=== PATIENT | female | born 1940 | race Native Hawaiian/Other Pacific Islander ===

== ENCOUNTER 2017-05-13 05:18 | Observation (INO) | payer MEDICARE, MEDICAID ==
--- NOTE | 2017-05-13 05:35 | C.PDOC ---
History Of Present Illness pt woke up with fever and chills and not feeling well. No cough. speaking in complete sentences.no dysuria Time Seen by Provider: 05/13/17 05:35 Chief Complaint (Nursing): Fever Past Medical History Reviewed: Historical Data, Nursing Documentation, Vital Signs Vital Signs: Last Vital Signs Temp 100.9 F H 05/13/17 06:15 Pulse 99 H 05/13/17 05:27 Resp 20 05/13/17 05:27 BP 175/72 H 05/13/17 05:27 Pulse Ox 95 05/13/17 06:29 - Medical History PMH: HTN Family History: States: No Known Family Hx - Social History Hx Tobacco Use: No Hx Alcohol Use: No Hx Substance Use: No - Immunization History Hx Tetanus Toxoid Vaccination: No Hx Influenza Vaccination: No Hx Pneumococcal Vaccination: No Review Of Systems Constitutional: Positive for: Fever, Chills. Negative for: Sweats Eyes: Negative for: Redness ENT: Negative for: Throat Pain Cardiovascular: Negative for: Chest Pain, Palpitations Respiratory: Negative for: Shortness of Breath Gastrointestinal: Negative for: Nausea, Vomiting, Abdominal Pain Genitourinary: Negative for: Dysuria Musculoskeletal: Negative for: Back Pain Skin: Negative for: Rash, Lesions, Jaundice Neurological: Negative for: Weakness Psych: Negative for: Anxiety Physical Exam - Physical Exam Appears: Non-toxic Skin: Warm, Dry Head: Normacephalic Eye(s): bilateral: Normal Inspection Oral Mucosa: Moist Neck: Trachea Midline, Supple Chest: Symmetrical Cardiovascular: Rhythm Regular Respiratory: No Rales, No Rhonchi, No Wheezing Gastrointestinal/Abdominal: Soft, No Tenderness, No Distention Back: No CVA Tenderness Extremity: No Tenderness Extremity: Bilateral: Atraumatic Neurological/Psych: Oriented x3, Normal Speech, Normal Cognition Gait: Steady ED Course And Treatment - Laboratory Results Result Diagrams: 05/13/17 05:58 05/13/17 05:58 ECG: Interpreted By Me, Viewed By Me O2 Sat by Pulse Oximetry: 95 Pulse Ox Interpretation: Normal - Radiology CXR: Interpreted by Me, Viewed By Me CXR Interpretation: Yes: Other (? small rll infiltrate). No: COPD, Fracture, Pnemothorax Disposition Counseled Patient/Family Regarding: Studies Performed, Diagnosis - Disposition Disposition Time: 05:35 Condition: FAIR - Clinical Impression Clinical Impression: Fever Physician Patient Turnover Patient Signed Over To: Kanchan Alvares Handoff Comments: pending labs and disposition
[2017-05-13 06:01] LABS: BASO % 0.3 % (0.0-2.0); EOS # 0.2 K/uL (0.0-0.7); EOS % 1.5 % (0.0-4.0); HEMOGLOBIN 13.8 g/dL (11.0-16.0); LYMPH # 1.6 K/uL (1.0-4.3); LYMPH % 11.3 % (20.0-40.0); MEAN CELL VOLUME 93.1 fL (81.0-99.0); MEAN CORPUSCULAR HEMOGLOBIN 31.3 pg (27.0-31.0); MEAN CORPUSCULAR HGB CONC 33.7 g/dL (33.0-37.0); MEAN PLATELET VOLUME 6.6 fL (7.2-11.7); MONO # 0.3 K/uL (0.0-0.8); MONO % 2.2 % (0.0-10.0); NEUT # 11.6 K/uL (1.8-7.0); NEUT % 84.7 % (50.0-75.0); RBC 4.4 Mil/uL (3.80-5.20); RED CELL DISTRIBUTION WIDTH 12.8 % (11.5-14.5); WHITE BLOOD COUNT 13.7 K/uL (4.8-10.8)
[2017-05-13 06:06] LABS: VENOUS BLOOD GAS BASE EXCESS -0.3 mmol/L (0.0-2.0); VENOUS BLOOD GAS PCO2 32 mmHg (40-60); VENOUS BLOOD GAS PO2 66 mm/Hg (30-55); VENOUS BLOOD PH 7.46 (7.32-7.43)
[2017-05-13] MEDS ORDERED: Sodium Chloride 0.9% 1,000 ML IV ONE (06:07)
[2017-05-13] MEDS ORDERED: Sodium Chloride 0.9% 1,000 ML ONE (06:14)
[2017-05-13 06:29] LABS: PROTHROMBIN TIME 11.2 SECONDS (9.7-12.2)
[2017-05-13 06:31] LABS: ALT/SGPT 26 U/L (9-52); AST/SGOT 29 U/L (14-36); BLOOD UREA NITROGEN 15 mg/dL (7-17); CALCIUM 8.2 mg/dl (8.6-10.4); GFR AFRICAN-AMERICAN > 60; GFR NON-AFRICAN AMERICAN > 60
[2017-05-13] MEDS ORDERED: Piperacillin/Tazobact 3.375 gm 100 ML IVPB STA (06:36)
[2017-05-13 07:56] LABS: SQUAMOUS EPITHIAL 1 /hpf (0-5); URINE BILIRUBIN NEGATIVE (NEGATIVE); URINE BLOOD NEGATIVE (NEGATIVE); URINE CLARITY Clear (Clear); URINE COLOR Colorless (YELLOW); URINE GLUCOSE (UA) NORMAL (Normal); URINE LEUKOCYTE ESTERASE NEG Leu/uL (Negative); URINE NITRATE NEGATIVE (NEGATIVE); URINE PROTEIN NEGATIVE (NEGATIVE); URINE UROBILINOGEN NORMAL mg/dL (0.2-1.0)
[2017-05-13] MEDS ORDERED: Moxifloxacin IV 400mg/250ml NS 400 MG/250 ML BAG IV ONE (08:12)
--- NOTE | 2017-05-13 08:32 | RAD ---
PROCEDURE: CHEST RADIOGRAPH, 1 VIEW HISTORY: Shortness of breath COMPARISON: 10/04/2016 FINDINGS: LUNGS: Moderate venous congestion with patchy bibasilar airspace opacities ; right greater than left. PLEURA: No pneumothorax or pleural fluid seen. CARDIOVASCULAR: Cardiomegaly. OSSEOUS STRUCTURES: Degenerative changes in the spine and shoulders. VISUALIZED UPPER ABDOMEN: Colonic interposition underneath the left hemidiaphragm. OTHER FINDINGS: None. IMPRESSION: Moderate venous congestion with patchy bibasilar airspace opacities ; right greater than left.
[2017-05-13] MEDS ORDERED: Moxifloxacin IV 400mg/250ml NS 400 MG/250 ML BAG IVPB ONE (08:55)
[2017-05-13 09:25] LABS: VENOUS BLOOD GAS BASE EXCESS -2.2 mmol/L (0.0-2.0); VENOUS BLOOD GAS PCO2 37 mmHg (40-60); VENOUS BLOOD GAS PO2 48 mm/Hg (30-55); VENOUS BLOOD PH 7.39 (7.32-7.43)
--- NOTE | 2017-05-13 21:20 | CP.PCM.HP ---
History of Present Illness - History of Present Illness History of Present Illness: fever, coughing HPI: Pt awoke this am with fever and chills. Had not felt this way all spring and summer, though pt does have a tendency to be cold. Pt proceeded to the ER on advice of her family members and patient was kept in the ER overnight from May 12 to . Pt was admitted the morning of the on impression of pneumonia per portable CXR, as well as WBC of 13,000+. Pt was also given Avelox , then Zosyn for the pneumonia. Pt was transferred to the floor where, per pt's nursing notes, pt was ambulating without difficulty, no signs of shortness of breath, and was afebrile since arrival at the ER. > The undersigned was paged and messages left on my phone, but due to cellphone signal issues, failed to receive said calls until pt was admitted by Dr. Bonilla , one of [facility] hospitalists. I received proper endorsement of the patient, and ordered confrimatory tests as things did not seem to correlate. Pt was noted to be sleeping soundly during my rounds, with no evidence of increased work of breathing. Present on Admission - Present on Admission Any Indicators Present on Admission: No History of DVT/PE: No History of Uncontrolled Diabetes: No Urinary Catheter: No Decubitus Ulcer Present: No History Surgical Site Infection Following: None Review of Systems - Constitutional Constitutional: Chills, Fever, Night Sweats - EENT Eyes: absent: As Per HPI, Blind Spots, Blurred Vision, Change in Vision, Decreased Night Vision, Diplopia, Discharge, Dry Eye, Exophthalmos, Floaters, Irritation, Itchy Eyes, Loss of Peripheral Vision, Pain, Photophobia, Requires Corrective Lenses, Sees Flashes, Spots in Vision, Tunnel Vision, Other Visual Disturbances, Loss of Vision, Other Ears: absent: As Per HPI, Decreased Hearing, Ear Discharge, Ear Pain, Tinnitus, Abnormal Hearing, Disequilibrium, Dizziness, Other Nose/Mouth/Throat: absent: As Per HPI, Epistaxis, Nasal Congestion, Nasal Discharge, Nasal Obstruction, Nasal Trauma, Nose Pain, Post Nasal Drip, Sinus Pain, Sinus Pressure, Bleeding Gums, Change in Voice, Dental Pain, Dry Mouth, Dysphagia, Halitosis, Hoarsness, Lip Swelling, Mouth Lesions, Mouth Pain, Odynophagia, Sore Throat, Throat Swelling, Tongue Swelling, Facial Pain, Neck Pain, Neck Mass, Other - Breasts Breasts: absent: As Per HPI, Change in Shape, Mass, Pain, Nipple Discharge, Nipple Inversion, Skin Changes, Swelling, Other - Cardiovascular Cardiovascular: absent: As Per HPI, Acrocyanosis, Chest Pain, Chest Pain at Rest , Chest Pain with Activity, Claudication, Diaphoresis, Dyspnea, Dyspnea on Exertion, Edema, Irregular Heart Rhythm, Pain Radiating to Arm/Neck/Jaw, Leg Edema, Leg Ulcers, Lightheadedness, Orthopnea, Palpitations, Paroxysmal Nocturnal Dyspnea, Pedal Edema, Radiating Pain, Rapid Heart Rate, Slow Heart Rate, Syncope, Other - Respiratory Respiratory: absent: As Per HPI, Cough, Dyspnea, Hemoptysis, Dyspnea on Exertion , Wheezing, Snoring, Stridor, Pain on Inspiration, Chest Congestion, Excessive Mucous Production, Change in Mucous Color, Pain with Coughing, Other - Gastrointestinal Gastrointestinal: absent: As Per HPI, Abdominal Pain, Belching, Bloating, Change in Bowel Habits, Change in Stool Character, Coffee Ground Emesis, Constipation, Cramping, Diarrhea, Dyspepsia, Dysphagia, Early Satiety, Excessive Flatus, Fecal Incontinence, Heartburn, Hematemesis, Hematochezia, Loose Stools, Melena, Nausea, Odynophagia, Temesmus, Vomiting, Other - Genitourinary Genitourinary: absent: As Per HPI, Change in Urinary Stream, Difficulty Urinating, Dysuria, Flank Pain, Hematuria, Pyuria, Nocturia, Urinary Incontinence, Urinary Frequency, Urinary Hesitance, Urinary Urgency, Voiding Freq/Small Amts, Freq UTI, Hx Renal/Bladder Calculi, Hx /Renal Surgery, Bladder Distension, Other - Menstruation Menstruation: Amenorrhea, Post Menopausal - Musculoskeletal Musculoskeletal: Other Additional comments: Rknee pain, R hip joint pain - Integumentary Integumentary: absent: As Per HPI, Acne, Alopecia, Bleeding Lesions, Change in Hair, Change in Nails, Change in Pigmentation, Changing Lesions, Dry Skin, Erythema, Furuncle, Hirsutism, Lesions, New Lesions, Non-Healing Lesions, Photosensitivity, Pruritus, Rash, Skin Pain, Skin Ulcer, Sores, Striae, Swelling , Unusual Bruising, Wounds, Jaundice, Other - Neurological Neurological: absent: As Per HPI, Abnormal Gait, Abnormal Hearing, Abnormal Movements, Abnormal Speech, Behavioral Changes, Burning Sensations, Confusion, Convulsions, Disequilibrium, Dizziness, Numbness, Focal Weakness, Frequent Falls , Headaches, Lack of Coordination, Loss of Vision, Memory Loss, Paresthesias, Radicular Pain, Restless Legs, Sensory Deficit, Syncope, Tingling, Tremor, Vertigo, Weakness, Other Visual Disturbances, Other - Psychiatric Psychiatric: Anxiety, Memory Loss (memory appears to be worsening, with global executive functioning impaired and insight into disease processes lacking; lets fear dictate reactions to situations she does not understand) - Endocrine Endocrine: Cold Intolorance - Hematologic/Lymphatic Hematologic: absent: As Per HPI, Easy Bleeding, Easy Bruising, Lymphadenopathy, Other Past Patient History - Infectious Disease Hx of Infectious Diseases: None - Tetanus Immunizations Tetanus Immunization: Unknown - Past Medical History & Family History Past Medical History?: Yes - Past Social History Smoking Status: Never Smoked Chewing Tobacco Use: No Cigar Use: No Occupation: retired [place] [employer] Work[employer] Alcohol: None Drugs: Denies Home Situation {Lives}: With Family - CARDIAC Hx Cardiac Disorders: Yes (?? ) Hx Hypertension: Yes - PULMONARY Hx Respiratory Disorders: Yes Hx Asthma: Yes - NEUROLOGICAL Hx Neurological Disorder: No - HEENT Hx HEENT Problems: No - RENAL Hx Chronic Kidney Disease: No - ENDOCRINE/METABOLIC Hx Endocrine Disorders: No - HEMATOLOGICAL/ONCOLOGICAL Hx Blood Disorders: No - INTEGUMENTARY Hx Dermatological Problems: No - MUSCULOSKELETAL/RHEUMATOLOGICAL Hx Musculoskeletal Disorders: No Hx Falls: No - GASTROINTESTINAL Hx Gastrointestinal Disorders: Yes Hx Gastroesophageal Reflux: Yes - GENITOURINARY/GYNECOLOGICAL Hx Genitourinary Disorders: Yes (incontinence, urinary) Hx Incontinence: Yes (intermittent) - PSYCHIATRIC Hx Psychophysiologic Disorder: Yes Hx Anxiety: Yes Hx Panic Symptoms: Yes Hx Substance Use: No - SURGICAL HISTORY Hx Surgeries: Yes Hx Appendectomy: Yes - ANESTHESIA Hx Anesthesia: Yes Hx Anesthesia Reactions: No Meds Allergies/Adverse Reactions: Allergies Allergy/AdvReac Type Severity Reaction Status Date / Time No Known Allergies Allergy Verified 10/04/16 20:48 Physical Exam - Constitutional Appears: No Acute Distress, Confused - Head Exam Head Exam: ATRAUMATIC, NORMAL INSPECTION, NORMOCEPHALIC - Eye Exam Eye Exam: EOMI, Normal appearance, PERRL Pupil Exam: Irregular, Mydriatic, NORMAL ACCOMODATION, PERRL - ENT Exam ENT Exam: Mucous Membranes Moist, Normal Exam, TM's Normal Bilaterally - Neck Exam Neck exam: Positive for: Full Rom, Normal Inspection - Respiratory Exam Respiratory Exam: Clear to Auscultation Bilateral, Stridor - Cardiovascular Exam Cardiovascular Exam: REGULAR RHYTHM - GI/Abdominal Exam GI & Abdominal Exam: Normal Bowel Sounds - Rectal Exam Rectal Exam: Deferred - Extremities Exam Extremities exam: Positive for: normal inspection - Back Exam Back exam: NORMAL INSPECTION - Neurological Exam Neurological exam: Alert, CN II-XII Intact, Oriented x3 - Skin Skin Exam: Dry, Intact, Normal Color Results - Vital Signs Recent Vital Signs: Last Vital Signs Temp 98.7 F 05/13/17 18:00 Pulse 94 H 05/13/17 18:00 Resp 18 05/13/17 18:00 BP 139/68 05/13/17 18:00 Pulse Ox 95 05/13/17 15:23 - Labs Result Diagrams: 05/14/17 08:01 05/14/17 08:01 Assessment & Plan (1) Pneumonia Assessment and Plan: start pt on azithromycin and rocephin Status: Acute Priority: High (2) Fever Assessment and Plan: will monitor, pt not very naive and needs to answer all questions before getting meds Status: Acute (3) Knee pain, right Assessment and Plan: xray prior to d/c Status: Acute (4) Hip pain, right Status: Acute Decision To Admit - Pt Status Changed To: Hospital Disposition Of: Observation - Admit Certification Admit to Inpatient:: Pt is an elderly female who claims to have developed signs and symptoms of sepsis. Pt needs observation in an acute care facility to ascertain pt's true medical condition and conduct corroborating testing. - InPatient: Physician Admission Certification:: Pt is an elderly female who claims to have developed signs and symptoms of sepsis. Pt needs observation in an acute care facility to ascertain pt's true medical condition and conduct corroborating testing. - . Bed Request Type: Regular Admitting Physician: Arnoldo Medina
[2017-05-13] MEDS: cefTRIAXone IV 1 gm in Dextros 1 GM in Dextrose 5% In Water 50 ML IVPB SCH (22:24)
[2017-05-14 08:09] LABS: BASO % 0.5 % (0.0-2.0); EOS # 0.2 K/uL (0.0-0.7); EOS % 1.7 % (0.0-4.0); HEMOGLOBIN 13.6 g/dL (11.0-16.0); LYMPH # 1.8 K/uL (1.0-4.3); LYMPH % 20.6 % (20.0-40.0); MEAN CELL VOLUME 92.8 fL (81.0-99.0); MEAN CORPUSCULAR HEMOGLOBIN 31.3 pg (27.0-31.0); MEAN CORPUSCULAR HGB CONC 33.7 g/dL (33.0-37.0); MEAN PLATELET VOLUME 7.2 fL (7.2-11.7); MONO # 0.9 K/uL (0.0-0.8); MONO % 10.6 % (0.0-10.0); NEUT % 66.6 % (50.0-75.0); RBC 4.34 Mil/uL (3.80-5.20); RED CELL DISTRIBUTION WIDTH 12.6 % (11.5-14.5)
[2017-05-14 08:20] LABS: BLOOD UREA NITROGEN 10 mg/dL (7-17); GFR AFRICAN-AMERICAN > 60; GFR NON-AFRICAN AMERICAN > 60
[2017-05-14 08:21] LABS: CALCIUM 8.5 mg/dl (8.6-10.4); HDL CHOLESTEROL 39 mg/dL (30-70)
[2017-05-14 08:32] LABS: LDL CHOLESTEROL 126 mg/dL (0-129)
[2017-05-14 08:36] LABS: B-TYPE NATRIURETIC PEPTIDE 406 pg/mL (0-900)
[2017-05-14] MEDS: cefTRIAXone IV 1 gm in Dextros 1 GM in Dextrose 5% In Water 50 ML IVPB SCH (09:15)
[2017-05-14 10:00] LABS: FREE T4 0.91 ng/dL (0.78-2.19)
[2017-05-14] MEDS ORDERED: Azithromycin 500 MG in Sodium Chloride 0.9% 250 ML IVPB SCH (10:00)
--- NOTE | 2017-05-14 13:38 | RAD ---
HISTORY: bibasilar infiltrates vs pulmonary edema COMPARISON: 05/13/2017 TECHNIQUE: Chest PA and lateral FINDINGS: LUNGS: No active pulmonary disease. PLEURA: No significant pleural effusion identified. No pneumothorax apparent. CARDIOVASCULAR: No radiographic findings to suggest acute or significant cardiovascular disease. OSSEOUS STRUCTURES: No significant abnormalities. VISUALIZED UPPER ABDOMEN: Normal. OTHER FINDINGS: None. IMPRESSION: No active disease. Improved aeration of the lungs compared to the prior study.
--- NOTE | 2017-05-14 14:45 | CARD ---
APPROVED REPORT EKG Measurement Heart [id number] <Conclusion> Sinus tachycardia Right bundle branch block Possible Inferior infarct, age undetermined Abnormal ECG
--- NOTE | 2017-05-14 19:32 | CP.PCM.PN ---
Subjective - Date & Time of Evaluation Date of Evaluation: 05/14/17 Time of Evaluation: 19:29 - Subjective Subjective: Pt seen and examined at bedside. Pt not coughing, no phlegm, comfortable. Updated pt on results of testing and asked pt to recount the events leading to her admission.Pt said that she developed chills and pain on her R knee and right hip the night she went to the ER. Pt apparently panicked and had family take her to the ER for evaluation since she did not know these sensations she was feeling. At the ER, pt found to have the elevated WBC count and lactate was 2.5. Code sepsis called and sepsis protocol initiated. Repeat lactate levels 4 hours later via ABG showed lactate declining to normal levels. > 2 view CXR ordered by me should no active pulmonary disease despite initial readingi.in the ER to the contrary. Pt's Welevated WBC count also declined overnight, and pt remain ed asymptomatic and afebrile until tonight'g measurement. Objective - Vital Signs/Intake and Output Vital Signs (last 24 hours): Temp Pulse Resp BP Pulse Ox 97.6 F 80 20 126/76 97 05/14/17 15:22 05/14/17 15:22 05/14/17 15:22 05/14/17 15:22 05/14/17 15:22 - Medications Medications: Current Medications Acetaminophen (Tylenol 325mg Tab) 650 mg PO Q6 PRN PRN Reason: Temperature Ceftriaxone Sodium 1 gm/ (Dextrose) 100 mls @ 50 mls/30 min IVPB Q12H [facility] Last Admin: 05/14/17 09:15 Dose: 50 mls/30 min Azithromycin 500 mg/ Sodium (Chloride) 250 mls @ 250 mls/hr IVPB DAILY [facility] Last Admin: 05/14/17 11:12 Dose: 250 mls/hr - Labs Labs: 05/14/17 08:01 05/14/17 08:01 PT 11.2 SECONDS (9.7-12.2) 05/13/17 06:05 INR 1.0 05/13/17 06:05 APTT 28 SECONDS (21-34) 05/13/17 06:05 - Constitutional Appears: No Acute Distress ([id number]) - Head Exam Head Exam: ATRAUMATIC, NORMAL INSPECTION, NORMOCEPHALIC - Eye Exam Eye Exam: Normal appearance, PERRL Pupil Exam: NORMAL ACCOMODATION - ENT Exam ENT Exam: Mucous Membranes Moist - Neck Exam Neck Exam: Full ROM, Normal Inspection - Respiratory Exam Respiratory Exam: Clear to Ausculation Bilateral, NORMAL BREATHING PATTERN - Cardiovascular Exam Cardiovascular Exam: REGULAR RHYTHM - GI/Abdominal Exam GI & Abdominal Exam: Hypoactive Bowel Sounds - Rectal Exam Rectal Exam: Deferred - Extremities Exam Extremities Exam: Full ROM, Normal Capillary Refill - Back Exam Back Exam: NORMAL INSPECTION - Neurological Exam Neurological Exam: Alert, Awake, CN II-XII Intact Neuro motor strength exam: Left Upper Extremity: 5, Right Upper Extremity: 5, Left Lower Extremity: 5, Right Lower Extremity: 5 Additional comments: oriented to person and place - Psychiatric Exam Psychiatric exam: Normal Affect, Normal Mood - Skin Skin Exam: Dry, Intact, Normal Color, Warm Assessment and Plan (1) Hip pain, right Assessment & Plan: advised pt most prob arthritis but will get xray of said area Status: Acute (2) Knee pain, right Assessment & Plan: t/c OA Status: Acute (3) Pneumonia Status: Resolved
[2017-05-14] MEDS ORDERED: Fluticasone-Salmeterol 250-50mcg Diskus INH SCH (20:00)
[2017-05-15 00:52] VITALS: RESP 20
[2017-05-15] MEDS ORDERED: Albuterol HFA 90 mcg/actuation (8 g) IH PRN (03:44)
[2017-05-15] MEDS ORDERED: FLUTICASONE FUROATE PO SCH (03:45)
[2017-05-15] MEDS: Albuterol HFA 90 mcg/actuation (8 g) INH SCH ×2 (03:50→07:43)
--- NOTE | 2017-05-15 03:51 | CP.PCM.DIS ---
Provider - Provider Date of Admission: 05/13/17 09:32 Attending physician: Arnoldo Medina MD Primary care physician: Dr. Arnoldo Medina Consults: none Time Spent in preparation of Discharge (in minutes): 30 Diagnosis - Discharge Diagnosis (1) Hip pain, right Status: Acute Priority: Medium (2) Knee pain, right Status: Acute Priority: Medium (3) Pneumonia Status: Resolved Priority: Low Hospital Course - Lab Results Lab Results: Micro Results 05/14/17 15:00 Sputum Induced Gram Stain - Final Most Recent Lab Values WBC 9.0 K/uL (4.8-10.8) 05/14/17 08:01 RBC 4.34 Mil/uL (3.80-5.20) 05/14/17 08:01 Hgb 13.6 g/dL (11.0-16.0) 05/14/17 08:01 Hct 40.3 % (34.0-47.0) 05/14/17 08:01 MCV 92.8 fL (81.0-99.0) 05/14/17 08:01 MCH 31.3 pg (27.0-31.0) H 05/14/17 08:01 MCHC 33.7 g/dL (33.0-37.0) 05/14/17 08:01 RDW 12.6 % (11.5-14.5) 05/14/17 08:01 Plt Count 287 K/uL (130-400) 05/14/17 08:01 MPV 7.2 fL (7.2-11.7) 05/14/17 08:01 Neut % (Auto) 66.6 % (50.0-75.0) 05/14/17 08:01 Lymph % (Auto) 20.6 % (20.0-40.0) 05/14/17 08:01 [place] % (Auto) 10.6 % (0.0-10.0) H 05/14/17 08:01 Eos % (Auto) 1.7 % (0.0-4.0) 05/14/17 08:01 Baso % (Auto) 0.5 % (0.0-2.0) 05/14/17 08:01 Neut # 6.0 K/uL (1.8-7.0) 05/14/17 08:01 Lymph # 1.8 K/uL (1.0-4.3) 05/14/17 08:01 [place] # 0.9 K/uL (0.0-0.8) H 05/14/17 08:01 Eos # 0.2 K/uL (0.0-0.7) 05/14/17 08:01 Baso # 0.0 K/uL (0.0-0.2) 05/14/17 08:01 PT 11.2 SECONDS (9.7-12.2) 05/13/17 06:05 INR 1.0 05/13/17 06:05 APTT 28 SECONDS (21-34) 05/13/17 06:05 pO2 48 mm/Hg (30-55) 05/13/17 09:20 VBG pH 7.39 (7.32-7.43) 05/13/17 09:20 VBG pCO2 37 mmHg (40-60) L 05/13/17 09:20 VBG HCO3 22.8 mmol/L 05/13/17 09:20 VBG Total CO2 23.5 mmol/L (22-28) 05/13/17 09:20 VBG O2 Sat (Calc) 87.3 % (40-65) H 05/13/17 09:20 VBG Base Excess -2.2 mmol/L (0.0-2.0) L 05/13/17 09:20 VBG Potassium 3.2 mmol/L (3.6-5.2) L 05/13/17 09:20 Sodium 140.0 mmol/l (132-148) 05/13/17 09:20 Chloride 109.0 mmol/L (98-107) H 05/13/17 09:20 Glucose 105 mg/dl (65-105) 05/13/17 09:20 Lactate 1.3 mmol/L (0.7-2.1) 05/13/17 09:20 Sodium 137 mmol/L (132-148) 05/14/17 08:01 Potassium 3.5 mmol/L (3.6-5.2) L 05/14/17 08:01 Chloride 100 mmol/L (98-107) 05/14/17 08:01 Carbon Dioxide 24 mmol/L (22-30) 05/14/17 08:01 Anion Gap 17 (10-20) 05/14/17 08:01 BUN 10 mg/dL (7-17) 05/14/17 08:01 Creatinine 0.7 MG/DL (0.7-1.2) 05/14/17 08:01 Est GFR ( Amer) > 60 05/14/17 08:01 Est GFR (Non-Af Amer) > 60 05/14/17 08:01 Random Glucose 123 mg/dL (65-105) H 05/14/17 08:01 Calcium 8.5 mg/dl (8.6-10.4) L 05/14/17 08:01 Total Bilirubin 1.2 mg/dL (0.2-1.3) 05/13/17 05:58 AST 29 U/L (14-36) 05/13/17 05:58 ALT 26 U/L (9-52) 05/13/17 05:58 Alkaline Phosphatase 61 U/L (38-126) 05/13/17 05:58 NT-Pro-B Natriuret Pep 406 pg/mL (0-900) 05/14/17 08:01 Total Protein 8.0 g/dL (6.3-8.3) 05/13/17 05:58 Albumin 4.0 g/dL (3.5-5.0) 05/13/17 05:58 Globulin 4.0 gm/dL (2.2-3.9) H 05/13/17 05:58 Albumin/Globulin Ratio 1.0 (1.0-2.1) 05/13/17 05:58 Triglycerides 68 mg/dL (0-149) 05/14/17 08:01 Cholesterol 175 mg/dL (0-199) 05/14/17 08:01 LDL Cholesterol Direct 126 mg/dL (0-129) 05/14/17 08:01 HDL Cholesterol 39 mg/dL (30-70) 05/14/17 08:01 Free T4 0.91 ng/dL (0.78-2.19) 05/14/17 08:01 TSH 3rd Generation 2.41 mIU/L (0.46-4.68) 05/14/17 08:01 Venous Blood Potassium 3.2 mmol/L (3.6-5.2) L 05/13/17 09:20 Urine Color Colorless (YELLOW) 05/13/17 07:34 Urine Clarity Clear (Clear) 05/13/17 07:34 Urine pH 5.0 (5.0-8.0) 05/13/17 07:34 Ur Specific [place] 1.005 (1.003-1.030) 05/13/17 07:34 Urine Protein Negative mg/dL (NEGATIVE) 05/13/17 07:34 Urine Glucose (UA) Normal mg/dL (Normal) 05/13/17 07:34 Urine Ketones Negative mg/dL (NEGATIVE) 05/13/17 07:34 Urine Blood Negative (NEGATIVE) 05/13/17 07:34 Urine Nitrate Negative (NEGATIVE) 05/13/17 07:34 Urine Bilirubin Negative (NEGATIVE) 05/13/17 07:34 Urine Urobilinogen Normal mg/dL (0.2-1.0) 05/13/17 07:34 Ur Leukocyte Esterase Neg Aman/uL (Negative) 05/13/17 07:34 Urine WBC (Auto) 1 /hpf (0-5) 05/13/17 07:34 Ur Squamous Epith Cells 1 /hpf (0-5) 05/13/17 07:34 - Hospital Course Hospital Course: Pt came to the ER after awakening and feeling chilled in the room she shares with a family member. Not knowing what she was feeling, pt went to the ER where she was diagnosed with pneumonia and subsequently admitted. Repeat testing to confirm pt's condition did not bear this out. Pt was subsequently discharged with further instructdions on how to handle outpatient issues after hours. Discharge Exam - Head Exam Head Exam: ATRAUMATIC, NORMAL INSPECTION, NORMOCEPHALIC - Eye Exam Eye Exam: Normal appearance Pupil Exam: NORMAL ACCOMODATION - ENT Exam ENT Exam: Normal Exam - Neck Exam Neck exam: Full Rom, Normal Inspection - Respiratory Exam Respiratory Exam: Accessory Muscle Use - Cardiovascular Exam Cardiovascular Exam: REGULAR RHYTHM - GI/Abdominal Exam GI & Abdominal Exam: Normal Bowel Sounds, Unremarkable - Rectal Exam Rectal Exam: NORMAL INSPECTION - Exam Exam: NORMAL INSPECTION External exam: NORMAL EXTERNAL EXAM - Extremities Exam Extremities exam: normal inspection - Back Exam Back exam: NORMAL INSPECTION - Neurological Exam Neurological exam: CN II-XII Intact, Normal Gait, Oriented x3 - Psychiatric Exam Psychiatric exam: Normal Affect, Normal Mood - Skin Skin Exam: Dry, Intact, Normal Color, Warm Discharge Plan - Follow Up Plan Condition: FAIR Disposition: HOME/ ROUTINE Clinical Quality Measures - CQM - Stroke Antithrombotic Prescribed: Patient Refused Contranindication/Reason for not providing: Risk for Falling Anticoagulation Prescribed for Atrial Flutter, Atrial Fibrillation and History of:: Not Applicable Contranindication/Reason for not providing: Risk for Bleeding Statin prescribed: Patient Refused - CQM - VTE Did patient receive overlap therapy during hosptialization?: No
[2017-05-15 08:32] VITALS: BP 112/73; PULSE 80; TEMP 97.4; O2SAT 95
[2017-05-15] MEDS ORDERED: Enoxaparin 30 mg Syringe SC SCH (10:00)
--- NOTE | 2017-05-15 13:03 | RAD ---
PROCEDURE: Right Knee Radiographs. HISTORY: pain with flexion and weight bearing COMPARISON: None. FINDINGS: BONES: Normal. No fracture. JOINTS: Tricompartmental osteoarthritis, most pronounced medial and patellofemoral compartments. Joint space narrowing. No significant subchondral sclerosis. Possible subchondral cystic change in patella. No articular erosion. Marginal bony proliferation. JOINT EFFUSION: None. OTHER FINDINGS: None. IMPRESSION: Tricompartmental osteoarthritis. No acute fracture
--- NOTE | 2017-05-15 13:05 | RAD ---
PROCEDURE: Radiographs of the pelvis and bilateral hips HISTORY: pain with weight bearing and hip flexion COMPARISON: None. FINDINGS: BONES: Pelvis: Unremarkable. Right hip:Unremarkable. Left hip:Unremarkable. JOINTS: Right hip: Unremarkable. Left hip: Unremarkable. Sacroiliac Joints: Unremarkable. Pubic symphysis: Unremarkable. SOFT TISSUES: Normal. OTHER FINDINGS: None. IMPRESSION: Unremarkable radiographs of the hips and pelvis.
== END 2017-05-15 15:04 | disposition home or self-care (01) ==
LOC: C.ER 05:18 → C.9E 09:32 → INTOOBSV 09:32 → C.5T 11:38
PROVIDERS: ADMIT Family Medicine; ATTEND Family Medicine
DX: J18.9 Pneumonia, unspecified organism (principal); I10 Essential (primary) hypertension; J45.909 Unspecified asthma, uncomplicated; K21.9 Gastro-esophageal reflux disease without esophagitis; M25.551 Pain in right hip; M25.561 Pain in right knee
CPT/HCPCS: 36415; 71010; 71020; 73521; 73562; 80048; 80053; 80061; 81001; 82803; 83880; 84439; 84443; 85025; 85610; 85730; 87040; 87070; 87086; 93005; 94640; 96361; 96365; 96366; 96367; 96372; 96375; 97110; 97161; 99285; G0378; G8978; G8979; G8980; J0456; J0696; J1650; J2280; J2543; J7040; J7050